=== PATIENT | male | born 1950 | race Hispanic/Latino ===

== ENCOUNTER 2017-03-12 09:37 | Emergency (ER) | payer MEDICARE, OTHER ==
[2017-03-12 09:37] VITALS: PULSE 88; BMI 22.6
[2017-03-12 09:49] VITALS: PULSE 98; TEMP 97.8
[2017-03-12 09:52] VITALS: O2SAT 98
--- NOTE | 2017-03-12 10:10 | ED PDOC ---
Arrival/HPI <Kunal Loya - Last Filed: 03/12/17 11:10> - History of Present Illness Time/Duration: < week Symptom Course: Unchanged Quality: Tightness, Burning Severity Level: 8 <Kimber Naylor - Last Filed: 03/12/17 11:12> - General Chief Complaint: Lower Extremity Problem/Injury Time Seen by Provider: 03/12/17 09:39 - History of Present Illness Narrative History of Present Illness (Text): 03/12/17 10:20 67 yo M w h/o sCHF (EF 20-25%), pHTN, HTN, HLD, CAD, NIDDM2 presented to ER with 3 day h/o 7/10 burning, tight pain on medial aspect of right big toe. Patient denies similar episodes in the past. He denies any recent CP, SOB, abd pain, n/v/d/c, fevers, chills, other rashes or lesions. Patient denies any recent trauma to the area. He denies trying anything for symptoms relief. Patient states he has been having a difficult time sleeping at night due to pain worsened by movement and light pressure to the area. (Kimber Naylor) Past Medical History <Kunal Loya - Last Filed: 03/12/17 11:10> - Provider Review Nursing Documentation Reviewed: Yes - Travel History Have you recently traveled outside [place] w/in the past 3 mons?: No - Infectious Disease Hx of Infectious Diseases: None - Tetanus Immunization Tetanus Immunization: Unknown - Cardiac Hx Cardiac Disorders: Yes (cardiomyopathy,LBBB,ISCHEMIC CARDIOMYOPATHY,CAD,L CAROTID ARTERY STENOSIS) Hx Congestive Heart Failure: Yes Hx VA: Yes Hx Hypertension: Yes Hx Hypotension: Yes - Pulmonary Hx Respiratory Disorders: Yes (PULMONARY EDEMA) Hx Chronic Obstructive Pulmonary Disease (COPD): Yes Hx Pneumonia: Yes - Neurological Hx Neurological Disorder: No - HEENT Hx HEENT Disorder: No (WEARSR X GLASSES) - Renal Hx Renal Disorder: No - Endocrine/Metabolic Hx Endocrine Disorders: Yes - Hematological/Oncological Hx Blood Disorders: No - Integumentary Hx Dermatological Disorder: No - Musculoskeletal/Rheumatological Hx Musculoskeletal Disorders: Yes (LEFT ARM SX-ORTHOPEDIC PRECEDURE) Hx Arthritis: Yes Hx Falls: No - Gastrointestinal Hx Gastrointestinal Disorders: No - Genitourinary/Gynecological Hx Genitourinary Disorders: Yes Hx Hematuria: Yes Hx Prostate Problems: Yes (GREENLIGHT PRODCEDURE,PROSTATITIS) - Psychiatric Hx Psychophysiologic Disorder: No Hx Substance Use: No - Past Surgical History Past Surgical History: No Previous - Surgical History Hx Cardiac Catheterization: Yes Hx Coronary Stent: Yes - Anesthesia Hx Anesthesia: Yes Hx Anesthesia Reactions: No Hx Malignant Hyperthermia: No - Suicidal Assessment Feels Threatened In Home Enviroment: No <Kimber Naylor - Last Filed: 03/12/17 11:12> - Patient History Narrative Patient History: CAD, ischemic CM and low EF of 20-25% s/p cardiac stents, HTN, HLD, NIDDM2 ( Kimber Naylor) Family/Social History - Physician Review Nursing Documentation Reviewed: Yes Family/Social History: CVA/TIA, Diabetes, Hypertension, CAD/VA Smoking Status: Former Smoker Hx Alcohol Use: No Hx Substance Use: No Hx Substance Use Treatment: No <Kimber Naylor - Last Filed: 03/12/17 11:12> Allergies/Home Meds <Kunal Loya - Last Filed: 03/12/17 11:10> <Kimber Naylor - Last Filed: 03/12/17 11:12> Allergies/Adverse Reactions: Allergies No Known Allergies Allergy (Verified 10/16/14 20:10) Home Medications: Home Meds Medication Instructions Recorded Confirmed Metformin HCl 1,000 mg PO BID 03/30/13 03/12/17 Metoprolol Succinate 25 mg PO BID 03/30/13 03/12/17 Simvastatin 20 mg PO DAILY 03/30/13 03/12/17 Furosemide [Lasix] 40 mg PO DAILY 05/08/13 03/12/17 Valsartan [Diovan] 160 mg PO DAILY 04/13/14 03/12/17 Chromium Picolinate 500 mcg PO DAILY 10/09/14 03/12/17 Levocarnitine [l-Carnitine] 1 tab PO DAILY 10/09/14 03/12/17 Review of Systems - Review of Systems Constitutional: absent: Fevers Eyes: absent: Vision Changes Respiratory: absent: SOB, Cough Cardiovascular: absent: Chest Pain, Palpitations Gastrointestinal: absent: Abdominal Pain, Constipation, Diarrhea, Nausea, Vomiting Genitourinary Male: absent: Dysuria Musculoskeletal: Joint Swelling (right big toe). absent: Myalgias Skin: absent: Skin Lesions Neurological: absent: Headache, Dizziness Endocrine: absent: Diaphoresis <Kimber Naylor - Last Filed: 03/12/17 11:12> Physical Exam Temperature: Afebrile Blood Pressure: Normal Pulse: Regular Respiratory Rate: Normal Appearance: Positive for: Well-Appearing, Non-Toxic, Comfortable Pain Distress: None Mental Status: Positive for: Alert and Oriented X 3 - Systems Exam Head: Present: Atraumatic, Normocephalic Pupils: Present: PERRL Extroacular Muscles: Present: EOMI Conjunctiva: Present: Normal Ears: Present: Normal Mouth: Present: Moist Mucous Membranes Respiratory/Chest: Present: Clear to Auscultation, Good Air Exchange. No: Respiratory Distress, Accessory Muscle Use, Wheezes, Rales Cardiovascular: Present: Regular Rate and Rhythm, Murmurs (2/6 systolic LSB) Abdomen: Present: Normal Bowel Sounds. No: Tenderness, Distention, Peritoneal Signs Upper Extremity: Present: Normal Inspection, Neurovascularly Intact. No: Cyanosis, Edema Lower Extremity: Present: Normal Inspection, Other (erythem, swelling, TTP at metatarsal-phalangeal joint of the right big toe) Neurological: Present: GCS=15, CN II-XII Intact, Speech Normal Skin: Present: Warm, Dry, Normal Color. No: Rashes Psychiatric: Present: Alert, Oriented x 3, Normal Insight, Normal Concentration <Kimber Naylor - Last Filed: 03/12/17 11:12> Vital Signs Temp Pulse Resp BP Pulse Ox 03/12/17 10:42 97.8 F 98 H 18 142/81 98 03/12/17 10:08 98 H 20 138/72 98 03/12/17 09:52 97.8 F 98 H 18 130/80 98 03/12/17 09:43 97.8 F 98 H 18 130/80 99 Medical Decision Making <Kunal Loya - Last Filed: 03/12/17 11:10> Re-evaluation Time: 10:41 Reassessment Condition: Improved <Kimber Naylor - Last Filed: 03/12/17 11:12> ED Course and Treatment: 03/12/17 11:10 Patient seen and examined with resident Came up with treatment and disposition plan with resident (Kunal Loya) 03/12/17 10:41 67 yo M with extensive cardiac history presents with swelling, redness and pain of right metatarsal-phalangeal joint, likely gout. IM toradol ordered and given , sig improvement in pain. (Kimber Naylor) - Medication Orders Current Medication Orders: Discontinued Medications Famotidine (Pepcid) 20 mg PO STAT STA Stop: 03/12/17 10:18 Last Admin: 03/12/17 10:30 Dose: 20 MG Ketorolac Tromethamine (Toradol) 15 mg IM STAT STA Stop: 03/12/17 10:06 Last Admin: 03/12/17 10:30 Dose: 15 MG IM Administration Charges Document 03/12/17 10:30 MMA (Rec[facility] 03/12/17 10:30 [id number] Injection Site MAR Injection Site Right Deltoid Charges for Administration # of IM Administrations 1 Disposition/Present on Arrival - Present on Arrival Any Indicators Present on Arrival: No - Disposition Have Diagnosis and Disposition been Completed?: Yes <Kunal Loya - Last Filed: 03/12/17 11:10> - Present on Arrival Any Indicators Present on Arrival: No History of DVT/PE: No History of Uncontrolled Diabetes: No Urinary Catheter: No History of Decub. Ulcer: No History Surgical Site Infection Following: None - Disposition Have Diagnosis and Disposition been Completed?: Yes Disposition Time: 10:07 Patient Plan: Discharge <Kimber Naylor - Last Filed: 03/12/17 11:12> - Disposition Diagnosis: Gout Disposition: HOME/ ROUTINE Condition: STABLE Discharge Instructions (ExitCare): Gout (ED) Print Language: PERUVIAN Additional Instructions: Please follow up with your PMD within 1-3 days. Return to ER if unable to followup or symptoms worsen. Prescriptions: Naproxen 500 mg PO Q8 PRN #30 tab PRN Reason: Pain, Moderate (4-7) Famotidine [Pepcid] 20 mg PO BID #30 tab Referrals: Tanvir Morrison MD [Primary Care Provider] - Follow up with primary
[2017-03-12 10:43] VITALS: BP 142/81; RESP 18
== END 2017-03-12 10:43 | disposition home or self-care (01) ==
LOC: ED 09:37
DX: M10.9 Gout, unspecified (principal)
CPT/HCPCS: 96372; 99284; J1885

== ENCOUNTER 2017-06-14 22:01 | Emergency (ER) | payer MEDICARE, OTHER ==
[2017-06-14 22:02] VITALS: PULSE 88
[2017-06-14 22:34] VITALS: BMI 24.0
[2017-06-14] MEDS ORDERED: Absorbable Gelatin Sponge Size 12-7 ONE (22:44)
[2017-06-14] MEDS ORDERED: Absorbable Gelatin Sponge Size 12-7 MM STA (23:00)
--- NOTE | 2017-06-14 23:18 | ED PDOC ---
Arrival/HPI <Lambert Seals - Last Filed: 06/14/17 23:37> - General Historian: Patient - History of Present Illness Time/Duration: Other (7pm) Symptom Onset: Sudden Symptom Course: Improving Quality: Other (NO pain) <Lacey Dunne - Last Filed: 06/15/17 01:17> - General Chief Complaint: Abnormal Skin Integrity Time Seen by Provider: 06/14/17 22:06 - History of Present Illness Narrative History of Present Illness (Text): 06/14/17 23:14 67-year-old male presents today with an abrasion to the right side of the face. Patient states he scratched his face around 7 PM today and he has been unable to stop the bleeding since then. Patient states he is taking elquis. Patient denies fevers or chills denies chest pain or shortness of breath. No abdominal pain. Patient denies dizziness or weakness. Patient denies pain to the abrasion site. No other complaints (Lacey Dunne) Past Medical History - Provider Review Nursing Documentation Reviewed: Yes - Travel History Have you recently traveled outside [place] w/in the past 3 mons?: No - Infectious Disease Hx of Infectious Diseases: None - Cardiac Hx Cardiac Disorders: Yes (cardiomyopathy,LBBB,ISCHEMIC CARDIOMYOPATHY,CAD,L CAROTID ARTERY STENOSIS) Hx Congestive Heart Failure: Yes Hx HI: Yes Hx Hypertension: Yes Hx Hypotension: Yes - Pulmonary Hx Respiratory Disorders: Yes (PULMONARY EDEMA) Hx Chronic Obstructive Pulmonary Disease (COPD): Yes Hx Pneumonia: Yes - Neurological Hx Neurological Disorder: No - HEENT Hx HEENT Disorder: No (WEARSR X GLASSES) - Renal Hx Renal Disorder: No - Endocrine/Metabolic Hx Endocrine Disorders: Yes - Hematological/Oncological Hx Blood Disorders: No - Integumentary Hx Dermatological Disorder: No - Musculoskeletal/Rheumatological Hx Musculoskeletal Disorders: Yes (LEFT ARM SX-ORTHOPEDIC PRECEDURE) Hx Arthritis: Yes Hx Falls: No - Gastrointestinal Hx Gastrointestinal Disorders: No - Genitourinary/Gynecological Hx Genitourinary Disorders: Yes Hx Hematuria: Yes Hx Prostate Problems: Yes (GREENLIGHT PRODCEDURE,PROSTATITIS) - Psychiatric Hx Psychophysiologic Disorder: No Hx Substance Use: No - Past Surgical History Past Surgical History: No Previous - Surgical History Hx Cardiac Catheterization: Yes Hx Coronary Stent: Yes - Anesthesia Hx Anesthesia: Yes Hx Anesthesia Reactions: No Hx Malignant Hyperthermia: No - Suicidal Assessment Feels Threatened In Home Enviroment: No <Lacey Dunne - Last Filed: 06/15/17 01:17> Family/Social History - Physician Review Nursing Documentation Reviewed: Yes Family/Social History: Unknown Family HX Smoking Status: Former Smoker Hx Alcohol Use: No Hx Substance Use: No Hx Substance Use Treatment: No <Lacey Dunne - Last Filed: 06/15/17 01:17> Allergies/Home Meds <Lambert Seals - Last Filed: 06/14/17 23:37> <Lacey Dunne - Last Filed: 06/15/17 01:17> Allergies/Adverse Reactions: Allergies No Known Allergies Allergy (Verified 06/14/17 22:39) Home Medications: Home Meds Medication Instructions Recorded Confirmed Metformin HCl 1,000 mg PO BID 03/30/13 03/12/17 Metoprolol Succinate 25 mg PO BID 03/30/13 03/12/17 Simvastatin 20 mg PO DAILY 03/30/13 03/12/17 Furosemide [Lasix] 40 mg PO DAILY 05/08/13 03/12/17 Valsartan [Diovan] 160 mg PO DAILY 04/13/14 03/12/17 Chromium Picolinate 500 mcg PO DAILY 10/09/14 03/12/17 Levocarnitine [l-Carnitine] 1 tab PO DAILY 10/09/14 03/12/17 Review of Systems - Review of Systems Constitutional: absent: Fatigue, Fevers Respiratory: absent: SOB, Cough Cardiovascular: absent: Chest Pain, Palpitations Gastrointestinal: absent: Abdominal Pain, Nausea, Vomiting Genitourinary Male: absent: Dysuria Musculoskeletal: absent: Arthralgias Skin: Rash Neurological: absent: Headache, Dizziness Psychiatric: absent: Anxiety, Depression <Lacey Dunne - Last Filed: 06/15/17 01:17> Physical Exam Vital Signs Reviewed: Yes Temperature: Afebrile Blood Pressure: Normal Pulse: Regular Respiratory Rate: Normal Appearance: Positive for: Well-Appearing, Non-Toxic, Comfortable Pain Distress: None Mental Status: Positive for: Alert and Oriented X 3 - Systems Exam Head: Present: Abrasion (there are 3 pinpoint abrasions noted just inferior to right lower lip; minimal bleeding noted. non tender. ) Conjunctiva: Present: Normal Mouth: Present: Moist Mucous Membranes Respiratory/Chest: Present: Clear to Auscultation Cardiovascular: Present: Regular Rate and Rhythm Skin: Present: Warm, Dry Psychiatric: Present: Alert, Oriented x 3 <Lacey Dunne - Last Filed: 06/15/17 01:17> Vital Signs Temp Pulse Resp BP Pulse Ox 06/15/17 00:16 98.0 F 73 17 119/73 98 06/14/17 22:34 98.1 F 93 H 18 134/86 97 Medical Decision Making <Lambert Seals - Last Filed: 06/14/17 23:37> <Lacey Dunne - Last Filed: 06/15/17 01:17> ED Course and Treatment: 06/14/17 23:17 Patient is nontoxic well-appearing in no distress with stable vital signs Patient with 3 small pinpoint abrasions just inferior to the right lower lip. Abrasions were cleaned. Gelfoam applied. The patient observed in the ER bleeding controlled. We'll discharge home to follow up with a primary care physician. Advised return if symptoms worsen persist or if new concerning symptoms develop Patient verbalizes understanding of discharge instructions and need for immediate followup. all aspects of this case were discussed the attending of record. Impression abrasion, face Keep wounds clean and dry Follow-up with primary care physician within the next 2 days Return if symptoms worsen persist or if new concerning symptoms develop (Lacey Dunne) - Medication Orders Current Medication Orders: Discontinued Medications Gelatin (Gelfoam Size 12-7) Confirm Administered Dose 1 spg .ROUTE .STK-MED ONE Stop: 06/14/17 22:45 Last Admin: 06/14/17 23:18 Dose: 1 spg Gelatin (Gelfoam Size 12-7) 1 spg MM STAT STA Stop: 06/14/17 23:01 Last Admin: 06/14/17 23:18 Dose: - PA / DIRECTOR MOBILE / Resident Statement / has reviewed & agrees with the documentation as recorded. / has examined the patient and agrees with the treatment plan. <Lambert Seals - Last Filed: 06/14/17 23:37> Disposition/Present on Arrival <Lambert Seals - Last Filed: 06/14/17 23:37> - Present on Arrival Any Indicators Present on Arrival: No History of DVT/PE: No History of Uncontrolled Diabetes: No Urinary Catheter: No History of Decub. Ulcer: No History Surgical Site Infection Following: None - Disposition Have Diagnosis and Disposition been Completed?: Yes Disposition Time: 23:18 Patient Plan: Discharge <Lacey Dunne - Last Filed: 06/15/17 01:17> - Disposition Diagnosis: Abrasion, face w/o infection Disposition: HOME/ ROUTINE Condition: GOOD Discharge Instructions (ExitCare): Abrasion (ED) Additional Instructions: Keep wounds clean and dry Follow-up with primary care physician within the next 2 days Return if symptoms worsen persist or if new concerning symptoms develop Referrals: Tanvir Morrison MD [Primary Care Provider] - Follow up with primary
[2017-06-15 00:17] VITALS: BP 119/73; PULSE 73; RESP 17; TEMP 98; O2SAT 98
== END 2017-06-15 00:22 | disposition home or self-care (01) ==
LOC: ED 22:01
DX: S00.81XA Abrasion of other part of head, initial encounter (principal); X58.XXXA Exposure to other specified factors, initial encounter; Y92.9 Unspecified place or not applicable

== ENCOUNTER 2017-06-15 06:48 | Emergency (ER) | payer MEDICARE, OTHER ==
[2017-06-15 06:48] VITALS: PULSE 88
[2017-06-15 07:42] VITALS: TEMP 98.8; O2SAT 98; BMI 23.8
--- NOTE | 2017-06-15 08:11 | ED PDOC ---
Arrival/HPI - General Chief Complaint: Medical Clearance Time Seen by Provider: 06/15/17 07:54 Historian: Patient - History of Present Illness Narrative History of Present Illness (Text): 06/15/17 08:11 A 67 year old male presents to the emergency department complaining of bleeding gums since this morning. Patient reports he started taking blood thinner medications about a week ago. Notes he has an appointment with his flow worker tomorrow. Denies any hematuria, hematochezia, abdominal pain or any other complaints at this time. PMD: Dr. Tanvir Morrison Carbon Brush Maker: Dr. Jackson Medications: Plavix, Eliquis Time/Duration: Other (this morning) Symptom Onset: Sudden Symptom Course: Unchanged Activities at Onset: Rest Context: Home Past Medical History - Provider Review Nursing Documentation Reviewed: Yes - Infectious Disease Hx of Infectious Diseases: None - Cardiac Hx Cardiac Disorders: Yes (cardiomyopathy,LBBB,ISCHEMIC CARDIOMYOPATHY,CAD,L CAROTID ARTERY STENOSIS) Hx Congestive Heart Failure: Yes Hx FL: Yes Hx Hypertension: Yes Hx Hypotension: Yes - Pulmonary Hx Respiratory Disorders: Yes (PULMONARY EDEMA) Hx Chronic Obstructive Pulmonary Disease (COPD): Yes Hx Pneumonia: Yes - Neurological Hx Neurological Disorder: No - HEENT Hx HEENT Disorder: No (WEARSR X GLASSES) - Renal Hx Renal Disorder: No - Endocrine/Metabolic Hx Endocrine Disorders: Yes - Hematological/Oncological Hx Blood Disorders: No - Integumentary Hx Dermatological Disorder: No - Musculoskeletal/Rheumatological Hx Musculoskeletal Disorders: Yes (LEFT ARM SX-ORTHOPEDIC PRECEDURE) Hx Arthritis: Yes Hx Falls: No - Gastrointestinal Hx Gastrointestinal Disorders: No - Genitourinary/Gynecological Hx Genitourinary Disorders: Yes Hx Hematuria: Yes Hx Prostate Problems: Yes (GREENLIGHT PRODCEDURE,PROSTATITIS) - Psychiatric Hx Psychophysiologic Disorder: No Hx Substance Use: No - Past Surgical History Past Surgical History: No Previous - Surgical History Hx Cardiac Catheterization: Yes Hx Coronary Stent: Yes - Anesthesia Hx Anesthesia: Yes Hx Anesthesia Reactions: No Hx Malignant Hyperthermia: No - Suicidal Assessment Feels Threatened In Home Enviroment: No Family/Social History - Physician Review Nursing Documentation Reviewed: Yes Family/Social History: No Known Family HX Smoking Status: Former Smoker Hx Alcohol Use: No Hx Substance Use: No Hx Substance Use Treatment: No Allergies/Home Meds Allergies/Adverse Reactions: Allergies No Known Allergies Allergy (Verified 06/15/17 07:41) Home Medications: Home Meds Medication Instructions Recorded Confirmed Metformin HCl 1,000 mg PO BID 03/30/13 06/15/17 Metoprolol Succinate 25 mg PO BID 03/30/13 06/15/17 Aspirin [Lo-Dose Aspirin EC] 81 mg PO DAILY 06/15/17 06/15/17 Furosemide [Lasix] 40 mg PO DAILY 06/15/17 06/15/17 Simvastatin [Zocor] 20 mg PO DAILY 06/15/17 06/15/17 Valsartan [Diovan] 160 mg PO DAILY 06/15/17 06/15/17 Review of Systems - Physician Review All systems were reviewed & negative as marked: Yes - Review of Systems ENT: Other (bleeding gums) Gastrointestinal: absent: Abdominal Pain, Hematochezia Genitourinary Male: absent: Hematuria Physical Exam Vital Signs Reviewed: Yes Vital Signs Temp Pulse Resp BP Pulse Ox 06/15/17 09:28 78 18 146/68 98 06/15/17 07:33 98.8 F 89 16 116/69 98 Temperature: Afebrile Blood Pressure: Normal Pulse: Regular Respiratory Rate: Normal Appearance: Positive for: Well-Appearing, Non-Toxic, Comfortable Pain Distress: None Mental Status: Positive for: Alert and Oriented X 3 - Systems Exam Head: Present: Atraumatic, Normocephalic Pupils: Present: PERRL Extroacular Muscles: Present: EOMI Conjunctiva: Present: Normal Mouth: Present: Moist Mucous Membranes. No: Other (no bleeding) Neck: Present: Normal Range of Motion Respiratory/Chest: Present: Clear to Auscultation, Good Air Exchange. No: Respiratory Distress, Accessory Muscle Use Cardiovascular: Present: Regular Rate and Rhythm, Normal S1, S2. No: Murmurs Abdomen: Present: Normal Bowel Sounds. No: Tenderness, Distention, Peritoneal Signs Back: Present: Normal Inspection Upper Extremity: Present: Normal Inspection. No: Cyanosis, Edema Lower Extremity: Present: Normal Inspection. No: Edema Neurological: Present: GCS=15, CN II-XII Intact, Speech Normal Skin: Present: Warm, Dry, Normal Color. No: Rashes Psychiatric: Present: Alert, Oriented x 3, Normal Insight, Normal Concentration Medical Decision Making ED Course and Treatment: 06/15/17 08:08 Impression: A 67 year old male with bleeding gums. Plan: -- labs -- Reassess and disposition Prior Visits: Notes and results from previous visits were reviewed. Patient last reported to the emergency department on 06/14/17 for evaluation of right sided face abrasion. Progress Notes: - Lab Interpretations Lab Results: 06/15/17 08:11 06/15/17 08:11 Lab Results 06/15/17 08:11: Sodium 143, Potassium 4.2, Chloride 107, Carbon Dioxide 22, Anion Gap 18, BUN 65 H, Creatinine 2.1 H, Est GFR ( Amer) 38, Est GFR ( Non-Af Amer) 32, Random Glucose 118 H, Calcium 9.4, Total Bilirubin 0.6, AST 30 , ALT 27, Alkaline Phosphatase 84, Total Protein 8.1, Albumin 4.4, Globulin 3.7 , Albumin/Globulin Ratio 1.2 06/15/17 08:11: PT 11.4, INR 1.06, APTT 27.3 06/15/17 08:11: WBC 10.4 D, RBC 4.28, Hgb 13.1 L, Hct 37.2 L, MCV 86.9, MCH 30.6, MCHC 35.2, RDW 12.6, Plt Count 300, MPV 10.5, Gran % 75.7 H, Lymph % (Auto ) 15.8 L, Hart % (Auto) 6.6 H, Eos % (Auto) 1.3 L, Baso % (Auto) 0.6, Gran # 7.86 H, Lymph # 1.6, Hart # 0.7 H, Eos # 0.1, Baso # 0.06 I have reviewed the lab results: Yes - Scribe Statement The provider has reviewed the documentation as recorded by the [place] Provider Scribe Attestation: All medical record entries made by the Scribe were at my direction and personally dictated by me. I have reviewed the chart and agree that the record accurately reflects my personal performance of the history, physical exam, medical decision making, and the department course for this patient. I have also personally directed, reviewed, and agree with the discharge instructions and disposition. Disposition/Present on Arrival - Present on Arrival Any Indicators Present on Arrival: No History of DVT/PE: No History of Uncontrolled Diabetes: No Urinary Catheter: No History of Decub. Ulcer: No History Surgical Site Infection Following: None - Disposition Have Diagnosis and Disposition been Completed?: Yes Diagnosis: Gums, bleeding Disposition: HOME/ ROUTINE Disposition Time: 09:00 Condition: GOOD Additional Instructions: Thank you for letting us take care of you today. Your provider was Dr. Burr. The emergency medical care you received today was directed at your acute symptoms. If you were prescribed any medication, please fill it and take as directed. It may take several days for your symptoms to resolve. Return to the Emergency Department if your symptoms worsen, do not improve, or if you have any other problems. Please contact your doctor or call one of the physicians/clinics you have been referred to that are listed on the Patient Visit Information form that is included in your discharge packet. Bring any paperwork you were given at discharge with you along with any medications you are taking to your follow up visit. Our treatment cannot replace ongoing medical care by a primary care provider (PCP) outside of the emergency department. Thank you for allowing the [facility] team to be part of your care today. Do not stop any of your medication and follow up with your doctor in 1-2 days. Referrals: Tanvir Morrison MD [Primary Care Provider] - Follow up with primary
[2017-06-15 08:29] LABS: BASO # 0.06 K/mm3 (0.0-2.0); BASO % 0.6 % (0.0-3.0); EOS # 0.1 (0.0-0.7); EOS % 1.3 % (1.5-5.0); GRAN # 7.86 (1.4-6.5); GRAN % 75.7 % (50.0-68.0); HEMOGLOBIN 13.1 gm/dL (14.0-18.0); LYMPH # 1.6 (1.2-3.4); LYMPH % 15.8 % (22.0-35.0); MEAN CELL VOLUME 86.9 fL (80.0-105.0); MEAN CORPUSCULAR HEMOGLOBIN 30.6 pg (25.0-35.0); MEAN CORPUSCULAR HGB CONC 35.2 g/dl (31.0-37.0); MEAN PLATELET VOLUME 10.5 fl (7.0-11.0); MONO # 0.7 (0.1-0.6); MONO % 6.6 % (1.0-6.0); PLATELET COUNT 300 10^3/uL (120.0-450.0); RBC 4.28 10^6/uL (3.5-6.1); RED CELL DISTRIBUTION WIDTH 12.6 % (11.5-14.5); WHITE BLOOD COUNT 10.4 10^3/ul (4.5-11.0)
[2017-06-15 08:44] LABS: INR 1.06 (0.93-1.08); PARTIAL THROMBOPLASTIN TIME 27.3 Seconds (23.7-30.8); PROTHROMBIN TIME 11.4 Seconds (9.9-11.8)
[2017-06-15 08:52] LABS: ALB/GLOB RATIO 1.2 (1.1-1.8); ALBUMIN 4.4 g/dL (3.0-4.8); CALCIUM 9.4 mg/dL (8.4-10.5)
[2017-06-15 09:30] VITALS: BP 146/68; PULSE 78; RESP 18
== END 2017-06-15 09:30 | disposition home or self-care (01) ==
LOC: ED 06:48
DX: K06.8 Other specified disorders of gingiva and edentulous alveolar ridge (principal); Z87.891 Personal history of nicotine dependence

== ENCOUNTER 2017-08-11 06:16 | Day surgery (SDC) | payer MEDICARE, OTHER ==
[2017-08-07 07:36] VITALS: BMI 23.8
--- NOTE | 2017-08-08 20:27 | HP ---
DATE: 08/08/2017 REASON FOR ADMISSION: Left heart cath, possible angioplasty and abnormal stress test. BRIEF CLINICAL HISTORY: This is a 67-year-old male with a past medical history significant for multiple PTCA's by Dr. Ramirez at [facility], status post AICD, ischemic cardiomyopathy, recently has Eliquis started by Dr. Ch at Dr. Ramirez's office after AICD interrogation. The patient underwent stress test that was abnormal, so patient is scheduled for elective cardiac cath and possible angioplasty. PAST MEDICAL HISTORY: Significant for history of multiple PTCA's in 2001, 2005, ischemic cardiomyopathy, hypertension, diabetes, hyperlipidemia, mitral regurgitation, tricuspid regurgitation on last done stress test. PREVIOUS CARDIAC WORKUP: As follows, stress test dated 06/16/2017, abnormal apical defect, partially reversible ischemia, ejection fraction 20%, mild echo ejection fraction 29%, mild to moderate mitral regurgitation, mild tricuspid regurgitation. CURRENT MEDICATIONS: The patient is taking amiodarone 200 mg daily, CoQ10, naproxen, insulin, aspirin, apixaban, glipizide, Lasix, Plavix, metformin, and valsartan. REVIEW OF SYSTEMS: As per HPI. PHYSICAL EXAMINATION: As follows; VITAL SIGNS: Temperature afebrile, heart rate 80 and blood pressure 120/80. HEENT: PERRLA intact. NECK: Supple. No carotid bruit. No thyromegaly. CHEST: Clear to auscultation. HEART: S1 and S2 regular. ABDOMEN: Soft. EXTREMITIES: Clubbing and cyanosis negative. IMPRESSION: Abnormal stress test, reversible ischemia, cardiomyopathy, history of multiple percutaneous transluminal coronary angioplasties in the past, diabetes, hypertension, hyperlipidemia, and paroxysmal atrial fibrillation. RECOMMENDATIONS: Hold Eliquis for 2 days prior to cardiac catheterization. Further recommendation after the cardiac catheterization. Thank you Dr. Morrison for providing the opportunity in taking care of the patient Amado Jara. We will follow with you. Rolo Mike MD
[2017-08-11] MEDS ORDERED: Iohexol 350mgl/ml 50 ML ONE (06:57)
[2017-08-11] MEDS ORDERED: Lidocaine 2% Inj (20ml) ONE (06:57)
[2017-08-11] MEDS ORDERED: Nitroglycerin 50mg in D5W 50 MG/250 ML BOTTLE IV ONE (06:57)
[2017-08-11] MEDS ORDERED: Iohexol 350 MG/100 ML VIAL ONE (06:58)
[2017-08-11 07:10] LABS: INR 0.99 (0.93-1.08); PARTIAL THROMBOPLASTIN TIME 23.4 Seconds (23.7-30.8)
[2017-08-11 07:11] LABS: BASO # 0.05 K/mm3 (0.0-2.0); BASO % 0.6 % (0.0-3.0); EOS # 0.2 (0.0-0.7); EOS % 2.2 % (1.5-5.0); GRAN # 5.73 (1.4-6.5); GRAN % 64.1 % (50.0-68.0); HEMATOCRIT 37.6 % (42.0-52.0); LYMPH # 2.2 (1.2-3.4); LYMPH % 24.8 % (22.0-35.0); MEAN CELL VOLUME 88.1 fl (80.0-105.0); MEAN CORPUSCULAR HEMOGLOBIN 30.7 pg (25.0-35.0); MEAN CORPUSCULAR HGB CONC 34.8 g/dl (31.0-37.0); MEAN PLATELET VOLUME 10.9 fl (7.0-11.0); MONO # 0.7 (0.1-0.6); MONO % 8.3 % (1.0-6.0); RED CELL DISTRIBUTION WIDTH 12.7 % (11.5-14.5); WHITE BLOOD COUNT 8.9 10^3/ul (4.5-11.0)
[2017-08-11 07:18] LABS: CALCIUM 9.9 mg/dL (8.4-10.5); POTASSIUM 4.1 mmol/L (3.6-5.0)
[2017-08-11] MEDS ORDERED: Sodium Bicarbonate (8.4%) 50 Meq Syringe ONE ×3 (07:27→07:40)
[2017-08-11] MEDS ORDERED: Iodixanol 320 MG/ML 100 ML BOTTLE IV ONE (07:33)
[2017-08-11] MEDS ORDERED: Midazolam 2 MG/2 ML VIAL ONE (07:33)
[2017-08-11] MEDS ORDERED: Iodixanol 320 mg/ml 150 ml Bottle IV ONE (07:33)
[2017-08-11] MEDS ORDERED: Acetylcysteine 20% Inhal Sol (30ml) ONE (07:44)
[2017-08-11] MEDS ORDERED: Bacitracin 500 Units/gm Oint Foilpak UD TOP ONE (08:50)
[2017-08-11] MEDS ORDERED: Sodium Bicarbonate 8.4% 100 MEQ in Dextrose 5% In Water 1,000 ML IV SCH (09:00)
[2017-08-11 09:38] VITALS: RESP 16
[2017-08-11 10:22] VITALS: TEMP 98.1
[2017-08-11 11:13] VITALS: BP 133/72; PULSE 84; O2SAT 98
--- NOTE | 2017-08-11 11:21 | CARD ---
APPROVED REPORT EKG Measurement Heart [id number] <Conclusion> Electronic ventricular pacemaker
[2017-08-11] MEDS ORDERED: Bacitracin 500 Units/gm Oint Foilpak UD ONE (12:33)
--- NOTE | 2017-08-11 16:08 | CARD ---
APPROVED REPORT Procedure(s) performed: Left Heart Catheterization HISTORY 19%. (EF Method: RADIONUCLIDE), previous CHF, renal failure without dialysis, peripheral vascular disease, diabetes mellitus with insulin treatment , previous diagnostic cath, tobacco history() : The patient is a former smoker , previous PCI (The PCI date was 12/01/2005), hypertension , dyslipidemia , cerebrovascular disease , non invasive test showed deterioration of LV Fx.. INDICATION The indication(s) include : positive stress test. CASE TECHNIQUE The patient was brought electively to the Cardiac Catheterization Laboratory in a fasting state and was prepped and draped in a sterile manner. The left wrist was infiltrated with 2% Lidocaine subcutaneous anesthesia. A 6 Fr Glidesheath (Radial) sheath was inserted into the left radial artery without difficulty. Coronary angiography was performed using coronary diagnostic catheters. The left coronary system was accessed and visualized with a Diagnostic ,6 Fr JL 3.5 catheter. The right coronary system was accessed and visualized with a Diagnostic ,5 Fr JL 4 catheter. The left ventricle was accessed and visualized with a 5 Fr Pigtail 145 (Angled) catheter. Left ventricular/Aortic Valve gradient assessed on pullback. Left ventriculogram was performed in GR projection. Closure device was deployed with a Fr TR Band (Large) without any complications. The patient tolerated the procedure well and there were no complications associated with the procedure. Vessel Analysis The patient's coronary anatomy is co-dominant. The left main coronary artery is a medium size vessel with diffuse calcification noted throughout this vessel and with significant stenosis. There is a 70% stenosis in the mid segment. Instent Restenosis The left main bifurcates to the left anterior descending and circumflex. The left anterior descending artery is a medium size vessel with diffuse calcification noted throughout this vessel and without significant stenosis. There is a 40% stenosis in the proximal segment. Diffusely diseased distally. The first diagonal branch is a small size vessel with diffuse calcification noted throughout this vessel and without significant stenosis. The second diagonal branch is a small size vessel with diffuse calcification noted throughout this vessel and without significant stenosis. The circumflex artery is a medium size vessel with diffuse calcification noted throughout this vessel and without significant stenosis. There is a 70% stenosis in the mid segment. The left posterior descending artery is a medium size vessel with diffuse calcification noted throughout this vessel and without significant stenosis. The right coronary artery is a large size vessel with diffuse calcification noted throughout this vessel and without significant stenosis. The right posterior descending artery is a large size vessel with diffuse calcification noted throughout this vessel and without significant stenosis. Left Ventricle The left ventricle is enlarged in size with severely decreased contractility. Ischemic cardiomyopathy. The left ventricular ejection fraction is estimated to be 25%. The left ventricular end diastolic pressure is 20 mmHg. There was no gradient across the aortic valve upon pullback. Conclusion Left main Instent Restenosis 70% with dapmening of BP and 40 mm drop of BP on engaging left main C/w significant Instent Restenosis in Left main Heavy atherosclerptic [place] In all coronaries Ischemic CMP, S/p AICD PAF on eliquis after AICD interogation Ch renal insufficiency, 30 cc contrast used ( base line creatinine 2.2) Recommendations PTCA of left main for ISR with Impella device at [facility] on 08/19/2017 Monitor Renal Fx, Bicarb drip for 6 hours and F/u SMA-7 before goes home. cc; Drs. Morrison / Manuel.
== END 2017-08-11 14:45 | disposition home or self-care (01) ==
LOC: CATH 06:16
PROVIDERS: ATTEND Internal Medicine Cardiovascular Disease
DX: T82.857A Stenosis of other cardiac prosthetic devices, implants and grafts, initial encounter (principal); Y83.1 Surgical operation with implant of artificial internal device as the cause of abnormal reaction of the patient, or of later complication, without mention of misadventure at the time of the procedure; I25.10 Atherosclerotic heart disease of native coronary artery without angina pectoris; I25.5 Ischemic cardiomyopathy; I48.0 Paroxysmal atrial fibrillation; E11.9 Type 2 diabetes mellitus without complications; I50.9 Heart failure, unspecified; I11.0 Hypertensive heart disease with heart failure; E78.5 Hyperlipidemia, unspecified; I08.1 Rheumatic disorders of both mitral and tricuspid valves; Z95.810 Presence of automatic (implantable) cardiac defibrillator; Z87.891 Personal history of nicotine dependence; Z79.4 Long term (current) use of insulin; Z79.01 Long term (current) use of anticoagulants; Z79.82 Long term (current) use of aspirin; Z79.84 Long term (current) use of oral hypoglycemic drugs; Z79.02 Long term (current) use of antithrombotics/antiplatelets
CPT/HCPCS: 36415; 80048; 80061; 85025; 85610; 85730; 86850; 86900; 93005; 93458; 99152; C1769; C1887 ×2; J1644 ×2; J2250; J3010; J7030; J7040

== ENCOUNTER 2018-03-26 08:16 | Emergency (ER) | payer MEDICARE, OTHER ==
[2018-03-26 08:17] VITALS: PULSE 88
[2018-03-26 08:18] VITALS: BMI 25.0
[2018-03-26 08:29] VITALS: TEMP 98.4
[2018-03-26] MEDS ORDERED: Oxycodone/Acetaminophen 5/325 mg Tab PO STA (08:57)
--- NOTE | 2018-03-26 09:06 | ED PDOC ---
Arrival/HPI - General Chief Complaint: Lower Extremity Problem/Injury Time Seen by Provider: 03/26/18 08:44 Historian: Patient - History of Present Illness Narrative History of Present Illness (Text): 03/26/18 09:05 A 68 year old male, whose past medical history includes Gout x1, presents to the emergency department complaining of left 2nd toe pain and left foot pain for the past two days. Patient states he accidentally stubbed his left foot while at home, however, pain wasn't severe. Reports pain worsened over 24 hours , notes severe pain, worse with weight bearing. Patient noticed left 2nd toe redness and discoloration. Patient was unable to ambulate, was brought in by EMS. Reports severe pain with no other associated symptoms. Denies any sick contacts. Denies any falls. Patient denies any fever, chills, sweats, chest pain , shortness of breath, palpitations, nausea, vomiting, numbness, tingling, bleeding or any other complaints at this time. Patient here in the emergency department for further evaluation. PMD: Dr. Morrison/Dr. Rivas Back Sewer: Dr. Brower ([facility])/ Dr. Mike Time/Duration: Other (2 days; worsening past 24 hours) Symptom Onset: Sudden Symptom Course: Unchanged Activities at Onset: Light Context: Home Past Medical History - Provider Review Nursing Documentation Reviewed: Yes - Travel History Have you recently traveled outside [place] w/in the past 3 mons?: No - Past History Past History: No Previous - Infectious Disease Hx of Infectious Diseases: None - Tetanus Immunization Tetanus Immunization: Unknown - Cardiac Hx Cardiac Disorders: Yes Hx Hypertension: Yes Hx Pacemaker: Yes - Pulmonary Hx Respiratory Disorders: Yes (PULMONARY EDEMA) Hx Chronic Obstructive Pulmonary Disease (COPD): Yes Hx Pneumonia: Yes - Neurological Hx Paralysis: No - HEENT Hx HEENT Disorder: No (WEARSR X GLASSES) - Renal Hx Renal Disorder: No - Endocrine/Metabolic Hx Endocrine Disorders: Yes - Hematological/Oncological Hx Blood Transfusions: No - Integumentary Hx Dermatological Disorder: No - Musculoskeletal/Rheumatological Hx Musculoskeletal Disorders: Yes (LEFT ARM SX-ORTHOPEDIC PRECEDURE) - Gastrointestinal Hx Gastrointestinal Disorders: No - Genitourinary/Gynecological Hx Genitourinary Disorders: Yes Hx Hematuria: Yes Hx Prostate Problems: Yes (GREENLIGHT PRODCEDURE,PROSTATITIS) - Psychiatric Hx Emotional Abuse: No Hx Physical Abuse: No Hx Substance Use: No - Past Surgical History Past Surgical History: No Previous - Surgical History Hx Cardiac Catheterization: Yes Hx Coronary Stent: Yes - Anesthesia Hx Anesthesia Reactions: No Hx Malignant Hyperthermia: No - Suicidal Assessment Feels Threatened In Home Enviroment: No Family/Social History - Physician Review Nursing Documentation Reviewed: Yes Family/Social History: No Known Family HX Smoking Status: Former Smoker Hx Alcohol Use: No Hx Substance Use: No Hx Substance Use Treatment: No Allergies/Home Meds Allergies/Adverse Reactions: Allergies No Known Allergies Allergy (Verified 03/26/18 08:18) Home Medications: Home Meds Medication Instructions Recorded Confirmed Valsartan [Diovan] 160 mg PO DAILY 06/15/17 03/26/18 Amiodarone [Cordarone] 200 mg PO DAILY 08/07/17 03/26/18 Aspirin [Aspirin Chewable] 81 mg PO DAILY 08/07/17 03/26/18 Clopidogrel [Plavix] 75 mg PO DAILY 08/07/17 03/26/18 Furosemide [Lasix] 40 mg PO DAILY 08/07/17 03/26/18 Glipizide [Glucotrol] 10 mg PO BID 08/07/17 03/26/18 Insulin Detemir [Levemir] 10 unit SC HS 08/07/17 03/26/18 Metoprolol Tartrate [Lopressor] 50 mg PO BID 08/07/17 03/26/18 Simvastatin [Zocor] 20 mg PO DAILY 08/07/17 03/26/18 Ubidecarenone [Co Q10] 100 mg PO DAILY 08/07/17 03/26/18 MetFORMIN [glucOPHAGE] 1,000 mg PO BID 03/26/18 03/26/18 Review of Systems - Physician Review All systems were reviewed & negative as marked: Yes - Review of Systems Constitutional: absent: Fevers, Other (chills) Eyes: Normal ENT: Normal Respiratory: absent: SOB Cardiovascular: absent: Chest Pain, Palpitations Gastrointestinal: absent: Nausea, Vomiting Genitourinary Male: Normal Musculoskeletal: Other (left foot pain and left 2nd toe pain; no numbness; no tingling) Skin: Normal Neurological: Normal Endocrine: absent: Diaphoresis Hemo/Lymphatic: Normal Psychiatric: Normal Physical Exam Vital Signs Reviewed: Yes Vital Signs Temp BP 03/26/18 08:24 98.4 F 149/93 H Temperature: Afebrile Blood Pressure: Hypertensive Pulse: Regular Respiratory Rate: Normal Appearance: Positive for: Well-Appearing, Non-Toxic, Uncomfortable, Other (alert /awake, uncomfortable, resting in bed, cooperative, NAD) Pain Distress: None Mental Status: Positive for: Alert and Oriented X 3 - Systems Exam Head: Present: Atraumatic, Normocephalic Pupils: Present: PERRL, Other (no photophobia, sclera anicteric) Extroacular Muscles: Present: EOMI Conjunctiva: Present: Normal Ears: Present: Normal Mouth: Present: Moist Mucous Membranes, Normal Teeth Pharnyx: Present: Normal Nose (External): Present: Atraumatic Nose (Internal): Present: Normal Inspection Neck: Present: Normal Range of Motion, Trachea Midline, Other (no step off, no midline tenderness). No: Meningeal Signs, MIDLINE TENDERNESS, Paraspinal Tenderness Respiratory/Chest: Present: Clear to Auscultation, Good Air Exchange, Other ( CTA b/l, no w/r/r). No: Respiratory Distress, Accessory Muscle Use Cardiovascular: Present: Regular Rate and Rhythm, Normal S1, S2. No: Murmurs Abdomen: Present: Normal Bowel Sounds, Other (well nourished male, no focal tenderness, no masses/rebound/guarding/rigidity, no michelle's sign, no mcburney' s point tenderness). No: Tenderness, Distention, Peritoneal Signs Back: Present: Normal Inspection. No: CVA Tenderness, Midline Tenderness Upper Extremity: Present: Normal Inspection, Normal ROM, NORMAL PULSES, Neurovascularly Intact, Capillary Refill < 2s. No: Cyanosis, Edema Lower Extremity: Present: Normal Inspection, NORMAL PULSES, Normal ROM, Neurovascularly Intact, Other (+ left 2nd toe swelling/redness, + tender on exam ; + left mid/lateral dorsum foot tenderness; + left foot swelling is noted, + 1/ 5 pitting edema is noted up to left ankle, decr ROM, + left foot tenderness is noted). No: Edema, Deformity Neurological: Present: GCS=15, CN II-XII Intact, Speech Normal Skin: Present: Warm, Dry, Normal Color, Other. No: Rashes Psychiatric: Present: Alert, Oriented x 3, Normal Insight, Normal Concentration Medical Decision Making ED Course and Treatment: 03/26/18 09:02 Impression: A 68 year old male with left 2nd toe pain and left foot pain. I have considered all differential diagnoses regarding patients chief medical complaints/clinical findings which include but are not limited to: likely gout ; r/o fx/dislocation, unlikely infection Plan: -- US lower extremity -- Radiology left foot -- Radiology left ankle -- labs -- Urinalysis -- Percocet, Toradol -- Reassess and disposition Prior Visits: Notes and results from previous visits were reviewed. Patient last seen in the ED on 06/15/17 for evaluation of bleeding gums. Progress Notes: 10:00 Dr Landrum contacted, made aware of pt's medical presentation/symptoms, agrees with ED mgt/txt, if negative results and symptoms improve, pt likely can be released home with outpt f/u 03/26/18 11:25 pt felt improved pt states pain is much more tolerable pt is able to ambulate with crutches pt is made aware of his medical results pt is encouraged min weight bearing pt is educated on diet for gout pt will f/u as directed pt will be discharged home Re-evaluation Time: 11:25 Reassessment Condition: Improved - Lab Interpretations Lab Results: 03/26/18 09:00 03/26/18 09:00 Lab Results 03/26/18 09:00: Sodium 142, Potassium 4.3, Chloride 108 H, Carbon Dioxide 23, Anion Gap 15, BUN 21, Creatinine 1.5, Est GFR ( Amer) 56, Est GFR (Non- Af Amer) 47, Random Glucose 249 H, Calcium 9.1, Total Bilirubin 0.6, AST 29, ALT 38, Alkaline Phosphatase 89, Total Protein 7.1, Albumin 4.2, Globulin 2.9, Albumin/Globulin Ratio 1.4 03/26/18 09:00: WBC 9.2, RBC 4.28, Hgb 13.0 L, Hct 37.4 L, MCV 87.4, MCH 30.4, MCHC 34.8, RDW 12.7, Plt Count 197, MPV 11.5 H, Gran % 74.5 H, Lymph % (Auto) 16.2 L, Bonner % (Auto) 7.4 H, Eos % (Auto) 1.7, Baso % (Auto) 0.2, Gran # 6.82 H , Lymph # (Auto) 1.5, Bonner # (Auto) 0.7 H, Eos # (Auto) 0.2, Baso # (Auto) 0.02 I have reviewed the lab results: Yes Interpretation: Abnormal lab values (elevated GLUC) - RAD Interpretation Narrative RAD Interpretations (Text): 03/26/18 10:36 Left Ankle Radiographs. Creator : John Bedolla MD FINDINGS: BONES: Normal. No fracture. JOINTS: Normal. No osteoarthritis. Ankle mortise maintained. Talar dome intact SOFT TISSUES: Normal. IMPRESSION: Normal left ankle radiographs. 03/26/18 10:36 Left Foot Radiographs. Creator : John Bedolla MD FINDINGS: BONES: Normal. No fracture. JOINTS: Degenerative changes are seen in the 1st MTP joint. SOFT TISSUES: Normal. IMPRESSION: No acute fractures 03/26/18 11:58 u/s left leg: NO DVT Radiology Orders: 03/26/18 08:58 FOOT LEFT 3 VIEWS ROUTINE [RAD] Stat DUPLEX LOWER EXTRM VEIN LEFT [US] Stat 03/26/18 08:59 ANKLE LEFT 3 VIEWS ROUTINE [RAD] Stat Intensive Care Nurse: Radiologist - Medication Orders Current Medication Orders: Discontinued Medications Ketorolac Tromethamine (Toradol) 15 mg IVP STAT STA Stop: 03/26/18 08:58 Last Admin: 03/26/18 09:06 Dose: 15 mg MAR Pain Assessment Document 03/26/18 09:06 EQ (Rec: 03/26/18 09:07 [id number]) Pain Reassessment Is this a pain reassessment? No Sleep Is patient sleeping during reassessment? No Presence of Pain Presence of Pain Yes IVP Administration Document 03/26/18 09:06 EQ (Rec: 03/26/18 09:07 [id number]) Charges for Administration # of IVP Administrations 1 Oxycodone/Acetaminophen (Percocet 5/325 Mg Tab) 1 tab PO STAT STA Stop: 03/26/18 08:58 Last Admin: 03/26/18 09:06 Dose: 1 tab MAR Pain Assessment Document 03/26/18 09:06 EQ (Rec: 03/26/18 09:06 EQ [id number]) Pain Reassessment Is this a pain reassessment? No Sleep Is patient sleeping during reassessment? No Presence of Pain Presence of Pain Yes - Scribe Statement The provider has reviewed the documentation as recorded by the Deo Patton Provider Scribe Attestation: All medical record entries made by the Scribe were at my direction and personally dictated by me. I have reviewed the chart and agree that the record accurately reflects my personal performance of the history, physical exam, medical decision making, and the department course for this patient. I have also personally directed, reviewed, and agree with the discharge instructions and disposition. Disposition/Present on Arrival - Present on Arrival Any Indicators Present on Arrival: No History of DVT/PE: No History of Uncontrolled Diabetes: No Urinary Catheter: No History of Decub. Ulcer: No History Surgical Site Infection Following: None - Disposition Have Diagnosis and Disposition been Completed?: Yes Diagnosis: Left foot pain, Gout Disposition: HOME/ ROUTINE Disposition Time: 11:35 Patient Plan: Discharge Patient Problems: Current Active Problems Problem Status Onset Gout Acute Left foot pain Acute Condition: STABLE Discharge Instructions (ExitCare): Gout, Foot Sprain (DC), Lifestyle Changes to Manage Gout Print Language: ROMANSH Additional Instructions: Make sure to see your doctor in 1-2 days DRINK PLENTY OF FLUIDS take your medications as prescribed RETURN TO ED IF worse pain, cant breath, persistent vomiting, high fever >101- 102 for hours, altered behavior, slurr speech, facial changes, focal weakness ( arm/leg or both), unable to urinate, heavy/persistent bleeding, passing out, chest pain, or other medical emergencies Prescriptions: Ibuprofen [Motrin] 400 mg PO QID PRN #30 tab PRN Reason: Pain, Mild (1-3) oxyCODONE/Acetaminophen [Percocet 5/325 mg Tab] 1 tab PO TID PRN #12 tab PRN Reason: Pain, Moderate (4-7) Referrals: Tanvir Morrison MD [Primary Care Provider] - Follow up with primary Mg Rivas MD [Staff Provider] - Follow up with primary Giovani Pena DPM [Staff Provider] - Follow up with primary Forms: [employer] ([place])
[2018-03-26 09:26] LABS: BASO # 0.02 K/mm3 (0.0-2.0); BASO % 0.2 % (0.0-3.0); EOS # 0.2 (0.0-0.7); EOS % 1.7 % (1.5-5.0); GRAN # 6.82 (1.4-6.5); GRAN % 74.5 % (50.0-68.0); LYMPH # 1.5 (1.2-3.4); LYMPH % 16.2 % (22.0-35.0); MEAN CELL VOLUME 87.4 fl (80.0-105.0); MEAN CORPUSCULAR HEMOGLOBIN 30.4 pg (25.0-35.0); MEAN CORPUSCULAR HGB CONC 34.8 g/dl (31.0-37.0); MEAN PLATELET VOLUME 11.5 fl (7.0-11.0); MONO # 0.7 (0.1-0.6); MONO % 7.4 % (1.0-6.0); RBC 4.28 10^6/uL (3.5-6.1); RED CELL DISTRIBUTION WIDTH 12.7 % (11.5-14.5); WHITE BLOOD COUNT 9.2 10^3/ul (4.5-11.0)
[2018-03-26 09:36] LABS: ALB/GLOB RATIO 1.4 (1.1-1.8); ALBUMIN 4.2 g/dL (3.0-4.8); CALCIUM 9.1 mg/dL (8.4-10.5)
--- NOTE | 2018-03-26 10:32 | RAD ---
PROCEDURE: Left Foot Radiographs. HISTORY: stubbed left foot, L 2nd toe pain/foot/ankle pain COMPARISON: None. FINDINGS: BONES: Normal. No fracture. JOINTS: Degenerative changes are seen in the 1st MTP joint. SOFT TISSUES: Normal. OTHER FINDINGS: None. IMPRESSION: No acute fractures
--- NOTE | 2018-03-26 10:33 | RAD ---
PROCEDURE: Left Ankle Radiographs. HISTORY: stubbed left foot, L 2nd toe pain/foot/ankle pain COMPARISON: None FINDINGS: BONES: Normal. No fracture. JOINTS: Normal. No osteoarthritis. Ankle mortise maintained. Talar dome intact SOFT TISSUES: Normal. OTHER FINDINGS: None. IMPRESSION: Normal left ankle radiographs.
[2018-03-26 12:21] VITALS: BP 153/91; PULSE 89; RESP 18; O2SAT 97
--- NOTE | 2018-03-26 16:18 | US ---
PROCEDURE: Left lower extremity venous US HISTORY: Leg pain and swelling. Evaluate for DVT. PHYSICIAN(S): Rex Morrison MD. TECHNIQUE: Duplex sonography and color-flow Doppler with graded compression were used to evaluate the deep venous system of the left lower extremity. FINDINGS: The visualized deep venous system of the left lower extremity is sonographically normal and compressible. Normal wave forms and augmentation are seen. There is no sonographic evidence for deep venous thrombosis in the visualized segments of the left lower extremity. IMPRESSION: 1. No sonographic evidence for deep venous thrombosis in the visualized segments of the left lower extremity.
== END 2018-03-26 12:25 | disposition home or self-care (01) ==
LOC: ED 08:16
DX: M79.672 Pain in left foot (principal); M10.9 Gout, unspecified; I10 Essential (primary) hypertension; J44.9 Chronic obstructive pulmonary disease, unspecified; Z87.891 Personal history of nicotine dependence
CPT/HCPCS: 73610; 73630; 80053; 85025; 93971; 96374; 99284; J1885

== ENCOUNTER 2018-10-08 06:39 | Day surgery (SDC) | payer MEDICARE, OTHER ==
[2018-09-29 13:22] VITALS: BMI 25.0
--- NOTE | 2018-10-08 05:14 | HP ---
DATE OF EXAM: 10/07/2018 REASON FOR ADMISSION: Left heart cath, possible angioplasty, abnormal stress test. BRIEF CLINICAL HISTORY: This is a 68-year-old male with past medical history significant for coronary artery disease, multiple stents in 2005 and 2006, who recently had multiple PTCAs, was started in 2001 to 2005 ischemic cardiomyopathy, last catheterization 08/11/2018 that shows essential left main, so the patient underwent subsequently left main with Impella device on 08/17/2018 at [facility] by Dr. Spencer. Followup stress test was done that shows significantly decreased ejection fraction of 22% and abnormal stress test suggestive of ischemia, so the patient was admitted for elective cardiac cath, possible angioplasty. PAST MEDICAL HISTORY: Significant for coronary artery disease, started in 2001 to 2005, and multiple PTCAs, most recently in 08/11/2017 cath and then subsequently 08/17/2017, left main with Impella device at [facility], history of atrial fibrillation, on Eliquis, moderate MR, status post AICD for ischemic cardiomyopathy, history of diabetes, and history of hypertension. SOCIAL HISTORY: Denies smoking. Denies any history alcohol abuse. Recent cardiac workup as follows: The patient had a stress test dated 09/09/2018 that revealed abnormal myocardial perfusion study, partial reversible anteroseptal apical defect suspicious for ischemia, severe LV dysfunction, hypokinesis, paradoxical septum. In comparison to last study *------*, there is a slight improvement of the perfusion defect. The patient had cardiac catheterization done in 08/11/2017 that shows left main in-stent stenosis 70% with dampening of the blood pressure 40 mm drop on engaging the left main with significant in-stent stenosis in the left main, heavily calcified atherosclerotic burden in all coronaries, ischemic cardiomyopathy status post AICD, history of paroxysmal atrial fibrillation, on Eliquis, AICD. RECOMMENDATION: PTCA of the left main for in-stent restenosis with Impella device at [facility] was done on 08/19/2018. Recent echo dated 09/21/2018 shows significantly decreased LV function, mild to moderate aortic stenosis by echo, but no gradient across the aortic valve noted by cath dated 08/11/2017. Trace to mild aortic regurgitation, moderate mitral regurgitation, mild tricuspid regurgitation, ejection fraction 25%, severe apical anterior wall hypokinesis noted dated 09/21/2018. CURRENT MEDICATIONS: The patient is taking CoQ 10, metoprolol 50 mg twice a day, metoprolol tartarate, Cozaar 50 mg twice a day, insulin, glipizide, furosemide, Plavix 75 mg daily, and Eliquis 2.5 mg daily. REVIEW OF SYSTEMS: As per HPI. PHYSICAL EXAMINATION VITAL SIGNS: Height of the patient 5 feet 11 inches, weight of the patient 180 pounds, body mass index 28 kg/m2. Rest of the examination, temperature afebrile, heart rate 80, blood pressure 130/80. HEENT: PERRLA intact. NECK: Supple. No carotid bruit or thyromegaly. CHEST: Clear to auscultation. HEART: S1, S2 regular. ABDOMEN: Soft. EXTREMITIES: Clubbing and cyanosis negative. LABORATORY DATA: Blood workup pending. IMPRESSION: This is a 68-year-old male with past medical history significant for coronary artery disease, status post multiple stents in 2001 and 2005, most recently the patient had a stent in 08/09/2017 with left main stent for in-stent restenosis with Impella device at [facility]. Now, the patient has apical ischemia suggestive of defect, so the patient is scheduled for elective cardiac cath, possible angioplasty. Last catheterization revealed right coronary artery essentially significant disease, left main 70% in-stent restenosis, left anterior descending 40% stenosis and circumflex 70% stenosis. Risks, benefits, and alternatives were discussed with the patient. The patient agreed to proceed for cardiac catheterization. Further recommendation after cardiac catheterization. We will follow with you. Thank you Dr. Enrique for providing us the opportunity in taking care of the patient, Amado Jara. Rolo Mike MD
[2018-10-08 07:20] LABS: BASO # 0.04 K/mm3 (0.0-2.0); BASO % 0.4 % (0.0-3.0); EOS # 0.3 (0.0-0.7); EOS % 2.9 % (1.5-5.0); GRAN # 5.49 (1.4-6.5); GRAN % 60.6 % (50.0-68.0); HEMOGLOBIN 15.4 g/dL (14.0-18.0); LYMPH # 2.8 (1.2-3.4); LYMPH % 30.3 % (22.0-35.0); MEAN CELL VOLUME 87.8 fl (80.0-105.0); MEAN CORPUSCULAR HEMOGLOBIN 31.8 pg (25.0-35.0); MEAN CORPUSCULAR HGB CONC 36.2 g/dl (31.0-37.0); MEAN PLATELET VOLUME 11.2 fl (7.0-11.0); MONO # 0.5 (0.1-0.6); MONO % 5.8 % (1.0-6.0); RBC 4.84 10^6/uL (3.5-6.1); RED CELL DISTRIBUTION WIDTH 12.5 % (11.5-14.5); WHITE BLOOD COUNT 9.1 10^3/uL (4.5-11.0)
[2018-10-08 07:25] LABS: CALCIUM 9.5 mg/dL (8.4-10.5)
[2018-10-08 07:26] LABS: INR 0.98; PARTIAL THROMBOPLASTIN TIME 25.8 Seconds (25.1-36.5); PROTHROMBIN TIME 11.3 SECONDS (9.4-12.5)
[2018-10-08 07:40] VITALS: RESP 18
[2018-10-08] MEDS ORDERED: Sodium Bicarbonate (8.4%) 50 Meq Syringe IVP ONE (08:03)
[2018-10-08] MEDS ORDERED: Lidocaine 2% Inj (20ml) ONE (09:36)
[2018-10-08] MEDS ORDERED: Verapamil 2 ML ONE (09:36)
[2018-10-08] MEDS ORDERED: Iodixanol 320 MG/ML 200 ML BOTTLE IV ONE (09:37)
[2018-10-08] MEDS ORDERED: Iodixanol 320 MG/ML 100 ML BOTTLE IV ONE (09:37)
[2018-10-08] MEDS ORDERED: Nitroglycerin 50mg in D5W 50 MG/250 ML BOTTLE IV ONE (09:37)
[2018-10-08] MEDS ORDERED: Iohexol 350mgl/ml 50 ML ONE (09:37)
[2018-10-08] MEDS ORDERED: Midazolam 2 MG/2 ML VIAL ONE ×2 (09:54→10:13)
--- NOTE | 2018-10-08 09:55 | CARD ---
APPROVED REPORT Date of service: 10/08/2018 EKG Measurement Heart [id number] <Conclusion> Electronic ventricular pacemaker
[2018-10-08] MEDS ORDERED: Bacitracin 500 Units/gm Oint Foilpak UD TOP ONE (10:39)
[2018-10-08 11:28] VITALS: TEMP 97.6
[2018-10-08] MEDS ORDERED: Insulin Reg-LOW-Coverage SC SCH (11:30)
--- NOTE | 2018-10-08 12:09 | CPOSTOP ---
DATE: 10/08/2018 CARDIOVASCULAR LAB POSTPROCEDURE NOTE DICTATING PHYSICIAN: Rolo Mike MD COMMERCIAL PILOT: Carolyne Orozco, it support technician. TYPE OF ANESTHESIA: Moderate conscious sedation. Total 2 mg of Versed, 50 of fentanyl given. PRE-PROCEDURE DIAGNOSIS: Unstable angina, history of coronary artery disease, multiple stents including left main, abnormal stress test. FINDINGS: Patent stent in left main, patent stent in circumflex, patent stent in LAD. FINAL DIAGNOSES: Patent stent, significant coronary artery disease. POST-PROCEDURE CONDITION: Patient's condition is stable. VASCULAR ACCESS SITE: Left radial. CLOSURE DEVICE: TR band. TOTAL RADIATION DOSE: 4094.91 milligray unit. TOTAL FLUORO TIME: 2.1 minutes. TOTAL CONTRAST USED: 9 mL. Rolo Mike MD
[2018-10-08] MEDS ORDERED: Bacitracin 500 Units/gm Oint Foilpak UD ONE (13:51)
[2018-10-08 14:46] VITALS: BP 127/67; PULSE 67; O2SAT 95
--- NOTE | 2018-10-09 08:40 | CARDCATH ---
PROCEDURE DATE: 10/08/2018 CARDIAC CATHETERIZATION/ANGIOPLASTY STRAP MACHINE OPERATOR: Alfredo Orozco, ear mold laboratory technician. SCHEDULING: Elective. PROCEDURES PERFORMED: Left and right coronary injection. BRIEF CLINICAL HISTORY: This is a 68-year-old male with past medical history significant for multiple cardiac catheterization. Most recently, the patient had a cardiac catheterization and PTCA of the left mid with Impella device at [facility] on 08/11/2017. Followup stress test shows abnormal, suspicious for ischemia, stress test dated 09/09/2018, partial reversible anteroseptal defect suggestive of ischemia. So, the patient is scheduled for elective cardiac cath, possible angioplasty. DESCRIPTION OF PROCEDURE: The patient was brought to the organic lab worker, prepped and draped in standard sterile fashion. Left radial artery was accessed with Seldinger technique and then 6-[place] Glidesheath was inserted. Then, left and right Leroy catheter and pigtail catheter used for coronary angiography. Findings as follow: Right coronary artery is super dominant, wrapped around and goes all the way to the apex, shows some luminal irregularity, but no flow-obstructive stenosis noted. Left coronary injection showed multiple stents in left main which were widely patent. No stenosis noted. LAD stent as widely patent noted. Circumflex, mid 60% stenosis noted. No LV gram done because the patient has renal insufficiency and total 9 mL of contrast used. The patient tolerated the procedure well. After this, a TR band applied, and the patient returned to the floor in stable condition. FINDING: Patent previous stent in left main. PLAN: Aggressive medical treatment. Rolo Mike MD cc: Dr. Rivas. Dr. Jackson. [facility]ITALCharmaine
== END 2018-10-08 15:25 | disposition home or self-care (01) ==
LOC: CATH 06:39
PROVIDERS: ATTEND Internal Medicine Cardiovascular Disease
DX: I25.110 Atherosclerotic heart disease of native coronary artery with unstable angina pectoris (principal); E11.9 Type 2 diabetes mellitus without complications; I10 Essential (primary) hypertension; I25.5 Ischemic cardiomyopathy; I08.3 Combined rheumatic disorders of mitral, aortic and tricuspid valves; I48.0 Paroxysmal atrial fibrillation; Z79.01 Long term (current) use of anticoagulants; Z79.4 Long term (current) use of insulin; Z95.5 Presence of coronary angioplasty implant and graft; Z95.810 Presence of automatic (implantable) cardiac defibrillator
CPT/HCPCS: 36415; 80048; 80061; 82948; 85025; 85610; 85730; 86850; 86900; 93005; 93454; 99152; 99153; C1769; C1887; J1644 ×2; J1940; J2250; J3010; J7030; J7040; Q9966